=== PATIENT | male | born 1995 | race American Indian/Alaskan Native ===

== ENCOUNTER 2018-05-29 15:37 | Inpatient (IN) | payer BC ==
--- NOTE | 2018-05-29 16:07 | C.PDOC ---
History Of Present Illness 23 year old male presents to the ED requesting detoxification from heroin and cocaine. Patient was prescreened for detox. Last heroin use was 2 days ago. Last cocaine use was this morning. Complains of myalgias. Denies any other comp laints. Denies SI/HI. Time Seen by Provider: 05/29/18 16:06 Chief Complaint (Nursing): Substance Abuse History Per: Patient History/Exam Limitations: no limitations Onset/Duration Of Symptoms: Days Current Symptoms Are (Timing): Still Present Suicide/Self Injury Attempted (Context): None Modifying Factor(s): Narcotics (Heroin), Cocaine Associated Symptoms: denies: Suicidal Thoughts, Suicidal Plan Past Medical History Reviewed: Historical Data, Nursing Documentation, Vital Signs Vital Signs: Last Vital Signs Temp 98.3 F 05/29/18 15:45 Pulse 76 05/29/18 15:45 Resp 18 05/29/18 15:45 BP 153/90 H 05/29/18 15:45 Pulse Ox 100 05/29/18 15:45 - Medical History PMH: No Chronic Diseases Surgical History: No Surg Hx Family History: States: No Known Family Hx - Social History Hx Alcohol Use: No Hx Substance Use: Yes (heroin, cocaine ) - Immunization History Hx Tetanus Toxoid Vaccination: No Hx Influenza Vaccination: No Hx Pneumococcal Vaccination: No Review Of Systems Except As Marked, All Systems Reviewed And Found Negative. Constitutional: Positive for: Other (myalgias ). Negative for: Fever, Chills Psych: Negative for: Suicidal ideation Physical Exam - Physical Exam Appears: Non-toxic, No Acute Distress Skin: Warm, Dry, No Rash Head: Normacephalic Eye(s): bilateral: Normal Inspection Neck: Supple Chest: Symmetrical Cardiovascular: Rhythm Regular Respiratory: No Rales, No Rhonchi, No Wheezing, Other (CTA B/L ) Gastrointestinal/Abdominal: Soft, No Tenderness Extremity: Bilateral: Atraumatic, Normal Color And Temperature, Normal ROM Neurological/Psych: Oriented x3, Normal Speech Gait: Steady ED Course And Treatment - Laboratory Results Result Diagrams: 05/29/18 17:03 05/29/18 17:03 O2 Sat by Pulse Oximetry: 100 (RA) Pulse Ox Interpretation: Normal Reevaluation Time: 17:26 Reassessment Condition: Unchanged (MED CLEAR FOR DETOX, CRISIS NOTIFIED) Medical Decision Making Medical Decision Making: Plan - Bloodwork - Catapres 0.2mg PO - Motrin 600mg PO - Zofran 4mg PO - UA - Crisis Eval Disposition Counseled Patient/Family Regarding: Studies Performed, Diagnosis - Disposition Disposition: HOSPITALIZED Disposition Time: 18:35 Condition: STABLE Forms: [facility] ([place]) - POA Present On Arrival: None - Clinical Impression Clinical Impression: Drug abuse - Scribe Statement The provider has reviewed the documentation as recorded by the Scribberry Onofre All medical record entries made by the Theoibe were at my direction and personally dictated by me. I have reviewed the chart and agree that the record accurately reflects my personal performance of the history, physical exam, medical decision making, and the department course for this patient. I have also personally directed, reviewed, and agree with the discharge instructions and disposition.
[2018-05-29 16:54] LABS: BASO # 0.1 K/uL (0.0-0.2); BASO % 1.2 % (0.0-2.0); EOS % 0.8 % (0.0-4.0); HEMOGLOBIN 14.1 g/dL (12.0-18.0); LYMPH # 1.7 K/uL (1.0-4.3); LYMPH % 37.4 % (20.0-40.0); MEAN CELL VOLUME 87.3 fL (80.0-94.0); MEAN CORPUSCULAR HEMOGLOBIN 28.4 pg (27.0-31.0); MEAN CORPUSCULAR HGB CONC 32.5 g/dL (33.0-37.0); MEAN PLATELET VOLUME 7.7 fL (7.2-11.7); MONO # 0.3 K/uL (0.0-0.8); MONO % 6.2 % (0.0-10.0); NEUT # 2.5 K/uL (1.8-7.0); NEUT % 54.4 % (50.0-75.0); NRBC % 0.1 % (0.0-2.0); RBC 4.98 Mil/uL (4.40-5.90); RED CELL DISTRIBUTION WIDTH 15.1 % (11.5-14.5); WHITE BLOOD COUNT 4.5 K/uL (4.8-10.8)
[2018-05-29 16:54] LABS: SQUAMOUS EPITHIAL < 1 /hpf (0-5); URINE BILIRUBIN NEGATIVE (NEGATIVE); URINE BLOOD NEGATIVE (NEGATIVE); URINE CLARITY Clear (Clear); URINE COLOR Yellow (YELLOW); URINE GLUCOSE (UA) NORMAL (Normal); URINE LEUKOCYTE ESTERASE NEG Leu/uL (Negative); URINE PROTEIN NEGATIVE (NEGATIVE); URINE UROBILINOGEN NORMAL mg/dL (0.2-1.0)
[2018-05-29 17:17] LABS: BARBITURATES, UR NEGATIVE (NEGATIVE); BENZODIAZEPINES, UR NEGATIVE (NEGATIVE); PHENCYCLIDINE, UR NEGATIVE (NEGATIVE)
[2018-05-29 17:19] LABS: OPIATES, UR POSITIVE (NEGATIVE)
[2018-05-29 17:22] LABS: ALB/GLOB RATIO 1.5 (1.0-2.1); ALBUMIN 4.9 g/dL (3.5-5.0); ALT/SGPT 28 U/L (21-72); AST/SGOT 23 U/L (17-59); BLOOD UREA NITROGEN 11 mg/dL (9-20); CALCIUM 9.5 mg/dl (8.6-10.4); GFR NON-AFRICAN AMERICAN > 60
--- NOTE | 2018-05-29 19:18 | PCM.BM ---
<CalosMyrna - Last Filed: 05/29/18 19:16> Treatment Plan Problems - Problems identified on initial assessmt Denial Date Initiated: 05/29/18 Time Initiated: 19:17 Assessment reference: NA Status: Active Hopelessness Date Initiated: 05/29/18 Time Initiated: 19:17 Assessment reference: NA Status: Active Low Motivation to Change Date Initiated: 05/29/18 Time Initiated: 19:17 Assessment reference: NA Status: Active Chronic low self Esteem Date Initiated: 05/29/18 Time Initiated: 19:18 Assessment reference: NA Status: Active Treatment assets and liabiliti Patient Assests: ADL independent, physically healthy, negotiates basic needs, cognitively intact Patient Liabilities: substance abuse (heroin, cocaine) - Milieu Protocol Maintain good personal hygiene: daily Encourage regular showers, daily Remind patient to perform daily oral care, daily Assist patient to perform ADL's Conduct patient checks and document Observation sheet: Q15 minutes Maintain personal safety: every shift Educate patient to report safety concerns to staff, every shift Monitor environment for contraband/sharps Medication safety: Monitor for expected outcome, potential side effects: every shift, Assess barriers to learning: every shift, Assess readiness for medication education: every shift <Yenifer Chandra - Last Filed: 05/30/18 09:49> - Diagnosis (1) Opioid use disorder, severe, dependence Status: Acute Interventions: 05/30/18 09:49 * Assess 7x/week regarding severity of withdrawal * Educate regarding risks, benefits, side effects and alternatives of medications * Use Motivational Interviewing for abstinence * Use CBT for relapse prevention * Medication management for withdrawal symptoms * Encourage medication assisted treatment *
[2018-05-29] MEDS ORDERED: Aluminum Hydroxide/Magnesium Hydroxide Susp (30 mL) PO PRN (21:09)
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
--- NOTE | 2018-06-01 15:05 | PCM.PYCHPN ---
Psychiatric Progress Note - Psychiatric Progress Note Patient seen today, length of contact: 17 min Patient Chief Complaint: "I'm a better" Problems Identified/Issues Discussed: The pt is seen, chart reviewed, case discussed with staff. The pt is compliant with medications and reports no side-effects. Symptoms are improving but needs more time to stabilize. No impulsivity, no anger outburts, not overtly depressed with meds and treatment Pt attends groups and activities. Appropriate and pleasant. Support given, psycho-education provided. After care discussed. He is motivated for rehab Medication Change: Yes (detox changes daily) Medical Record Reviewed: Yes Mental Status Examination - Cognitive Function Orientation: Person, Place, Situation, Time Memory: Intact Attention: WNL Concentration: Poor Association: WNL Fund of Knowledge: WNL - Mood Mood: Depressed, Anxious - Affect Affect: Constricted - Speech Speech: Appropriate - Formal Thought Process Formal Thought Process: No Impairment - Suicidal Ideation Suicidal Ideation: No - Homicidal Ideation Homicidal Ideation: No Goal/Treatment Plan - Goal/Treatment Plan Need for Continued Stay: Discharge may exacerbated symptoms, Severe functional impairment Progress Toward Problem(s) and Goals/Treatment Plan: Taper with Methadone Gabapentin for augmentation Abilify and Lexapro for mood sxs and psychosis As needed medications Maalox, Clonidine, Atarax, Motrin, Imodium, Zofran, Trazodone All risks, benefits and alternatives of the meds discussed, and the pt agreed and understood. Attend groups and activities Supportive therapy and psychoeducation [place] for abstinence CBT for relapse prevention Encourage MAT Refer to rehab or IOP, and self-help groups Teach healthy lifestyle methods, i.e. diet, exercise, meditation Smoking cessation with [place] Nicotine patch if needed
--- NOTE | 2018-06-02 10:22 | PCM.PYCHPN ---
Psychiatric Progress Note - Psychiatric Progress Note Patient seen today, length of contact: 17 min Patient Chief Complaint: "I'm anxious" Problems Identified/Issues Discussed: The pt is seen, chart reviewed, case is discussed with staff. Support and psychoeducation given, CBT and [place] used briefly The pt is improving slowly but needs more time due to severity of symptoms and relapse risk. No SEs from medications, risks discussed. After care discussed Medication Change: Yes (detox changes daily) Medical Record Reviewed: Yes Mental Status Examination - Cognitive Function Orientation: Person, Place, Situation, Time Memory: Intact Attention: WNL Concentration: Poor Association: WNL Fund of Knowledge: WNL - Mood Mood: Depressed, Anxious - Affect Affect: Constricted - Speech Speech: Appropriate - Formal Thought Process Formal Thought Process: No Impairment - Suicidal Ideation Suicidal Ideation: No - Homicidal Ideation Homicidal Ideation: No Goal/Treatment Plan - Goal/Treatment Plan Need for Continued Stay: Discharge may exacerbated symptoms, Severe functional impairment Progress Toward Problem(s) and Goals/Treatment Plan: Taper with Methadone Gabapentin for augmentation Abilify and Lexapro for mood sxs and psychosis As needed medications Maalox, Clonidine, Atarax, Motrin, Imodium, Zofran, Trazodone All risks, benefits and alternatives of the meds discussed, and the pt agreed and understood. Attend groups and activities Supportive therapy and psychoeducation [place] for abstinence CBT for relapse prevention Encourage MAT Refer to rehab or IOP, and self-help groups Teach healthy lifestyle methods, i.e. diet, exercise, meditation Smoking cessation with [place] Nicotine patch if needed
--- NOTE | 2018-06-03 00:40 | PCM.PYCHPN ---
Psychiatric Progress Note - Psychiatric Progress Note Patient seen today, length of contact: 18 min Patient Chief Complaint: "I'm depressed" Problems Identified/Issues Discussed: The pt is seen again, chart reviewed, and case is discussed with the team. The pt denies any side-effects from meds. Attend activities and groups, brief individual therapy provided Not ready for discharge due to ongoing symptoms and high relapse risk. After care discussed again. Medication Change: Yes (detox changes daily) Medical Record Reviewed: Yes Mental Status Examination - Cognitive Function Orientation: Person, Place, Situation, Time Memory: Intact Attention: WNL Concentration: Poor Association: WNL Fund of Knowledge: WNL - Mood Mood: Depressed, Anxious - Affect Affect: Constricted - Speech Speech: Appropriate - Formal Thought Process Formal Thought Process: No Impairment - Suicidal Ideation Suicidal Ideation: No - Homicidal Ideation Homicidal Ideation: No Goal/Treatment Plan - Goal/Treatment Plan Need for Continued Stay: Discharge may exacerbated symptoms, Severe functional impairment Progress Toward Problem(s) and Goals/Treatment Plan: Taper with Methadone Gabapentin for augmentation Abilify and Lexapro for mood sxs and psychosis As needed medications Maalox, Clonidine, Atarax, Motrin, Imodium, Zofran, Trazodone All risks, benefits and alternatives of the meds discussed, and the pt agreed and understood. Attend groups and activities Supportive therapy and psychoeducation [place] for abstinence CBT for relapse prevention Encourage MAT Refer to rehab or IOP, and self-help groups Teach healthy lifestyle methods, i.e. diet, exercise, meditation Smoking cessation with [place] Nicotine patch if needed
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
[2018-06-03 09:32] VITALS: BP 133/77; PULSE 72; RESP 19; TEMP 98.8; O2SAT 99
== END 2018-06-03 09:36 | DRG 895 ==
LOC: C.ER 15:37 → C.7D 18:36 → C.9E 18:41 → C.7D 18:51
PROVIDERS: ADMIT Psychiatry & Neurology Psychiatry; ATTEND Psychiatry & Neurology Psychiatry
PROC: HZ2ZZZZ Detoxification Services for Substance Abuse Treatment (ICD-10-PCS; principal; 2018-05-29)
PROC: HZ46ZZZ Group Counseling for Substance Abuse Treatment, Psychoeducation (ICD-10-PCS; 2018-05-29)
PROC: GZ3ZZZZ Medication Management (ICD-10-PCS; 2018-05-29)
PROC: HZ59ZZZ Individual Psychotherapy for Substance Abuse Treatment, Supportive (ICD-10-PCS; 2018-05-29)
DX: F11.23 Opioid dependence with withdrawal (principal); F14.20 Cocaine dependence, uncomplicated; F33.3 Major depressive disorder, recurrent, severe with psychotic symptoms; F31.81 Bipolar II disorder; F16.10 Hallucinogen abuse, uncomplicated; F43.10 Post-traumatic stress disorder, unspecified; Z91.5 Personal history of self-harm

== ENCOUNTER 2018-08-18 08:21 | Inpatient (IN) | payer BC ==
[2018-08-18 09:16] LABS: BASO # 0.1 K/uL (0.0-0.2); BASO % 1.2 % (0.0-2.0); EOS # 0.1 K/uL (0.0-0.7); EOS % 1.3 % (0.0-4.0); HEMOGLOBIN 12.6 g/dL (12.0-18.0); LYMPH # 2.1 K/uL (1.0-4.3); LYMPH % 34.7 % (20.0-40.0); MEAN CELL VOLUME 86.1 fL (80.0-94.0); MEAN CORPUSCULAR HEMOGLOBIN 28.2 pg (27.0-31.0); MEAN CORPUSCULAR HGB CONC 32.8 g/dL (33.0-37.0); MEAN PLATELET VOLUME 7.3 fL (7.2-11.7); MONO # 0.4 K/uL (0.0-0.8); MONO % 5.8 % (0.0-10.0); NEUT # 3.4 K/uL (1.8-7.0); NRBC % 0.1 % (0.0-2.0); RBC 4.46 Mil/uL (4.40-5.90); RED CELL DISTRIBUTION WIDTH 13.6 % (11.5-14.5)
[2018-08-18 09:26] LABS: SQUAMOUS EPITHIAL < 1 /hpf (0-5); URINE BILIRUBIN NEGATIVE (NEGATIVE); URINE BLOOD NEGATIVE (NEGATIVE); URINE CLARITY Clear (Clear); URINE COLOR Yellow (YELLOW); URINE GLUCOSE (UA) NORMAL (Normal); URINE LEUKOCYTE ESTERASE NEG Leu/uL (Negative); URINE PROTEIN NEGATIVE (NEGATIVE); URINE UROBILINOGEN NORMAL mg/dL (0.2-1.0)
[2018-08-18 09:31] LABS: ALB/GLOB RATIO 1.5 (1.0-2.1); ALBUMIN 4.2 g/dL (3.5-5.0); ALT/SGPT 30 U/L (21-72); AST/SGOT 61 U/L (17-59); BLOOD UREA NITROGEN 11 mg/dL (9-20); CALCIUM 9.7 mg/dl (8.6-10.4); GFR NON-AFRICAN AMERICAN > 60
[2018-08-18 09:45] LABS: BARBITURATES, UR NEGATIVE (NEGATIVE); BENZODIAZEPINES, UR NEGATIVE (NEGATIVE); PHENCYCLIDINE, UR NEGATIVE (NEGATIVE)
[2018-08-18 10:18] LABS: OPIATES, UR POSITIVE (NEGATIVE)
--- NOTE | 2018-08-18 10:22 | C.PDOC ---
History Of Present Illness 23 year old male presents to ED with mother requesting detox from heroin and cocaine. Mother states that he was expressing suicidal ideation at home. Mother states that he came to [facility] several months ago for detox, felt better for a while, and then relapsed. Patient denies any physical complaints and suicidal ideation. Time Seen by Provider: 08/18/18 08:37 Chief Complaint (Nursing): Substance Abuse History Per: Patient, Family (mother) History/Exam Limitations: no limitations Onset/Duration Of Symptoms: Other (requesting detox) Suicide/Self Injury Attempted (Context): None Modifying Factor(s): Cocaine, Other (heroin) Associated Symptoms: denies: Suicidal Thoughts, Suicidal Plan Past Medical History Reviewed: Historical Data, Nursing Documentation, Vital Signs Vital Signs: Last Vital Signs Temp 98.1 F 08/18/18 08:31 Pulse 79 08/18/18 08:31 Resp 16 08/18/18 08:31 BP 132/78 08/18/18 08:31 Pulse Ox 99 08/18/18 08:31 - Medical History PMH: Bronchitis Denies: Diabetes (Patient denied.), Hepatitis (Patient denied.), HIV (Patient denied.), HTN (Patient denied.), Seizures (Patient denied.), Sexually Transmitted Disease (Patient denied.) Surgical History: No Surg Hx - [facility] Procedures DETOXIFICATION SERVICES FOR SUBSTANCE ABUSE TREATMENT (05/29/18) GROUP MANAGING COGNITIVE ENGINEER FOR SUBSTANCE ABUSE TREATMENT, PSYCHOEDUCATION (05/29/18) INDIV PSYCHOTHERAPY FOR SUBSTANCE ABUSE TREATMENT, SUPPORT (05/29/18) MEDICATION MANAGEMENT (05/29/18) Family History: States: Unknown Family Hx - Social History Hx Alcohol Use: No Hx Substance Use: Yes (LAST USE LAST NIGHT) - Immunization History Hx Tetanus Toxoid Vaccination: No Hx Influenza Vaccination: No Hx Pneumococcal Vaccination: No Review Of Systems Constitutional: Negative for: Fever, Chills, Weakness Respiratory: Negative for: Shortness of Breath Gastrointestinal: Negative for: Nausea, Vomiting, Abdominal Pain Neurological: Negative for: Weakness, Numbness, Dizziness Psych: Negative for: Suicidal ideation Physical Exam - Physical Exam Appears: Well, Non-toxic, No Acute Distress Skin: Normal Color, Warm, Dry Head: Atraumatic, Normacephalic Neck: Normal ROM, Supple Chest: Symmetrical, No Deformity Cardiovascular: Rhythm Regular, No Murmur Respiratory: No Rales, No Rhonchi, No Wheezing Gastrointestinal/Abdominal: Soft, No Tenderness Extremity: Capillary Refill (<2 seconds) Neurological/Psych: Oriented x3, Normal Speech, Normal Cognition ED Course And Treatment - Laboratory Results Result Diagrams: 08/18/18 09:09 08/18/18 09:09 Lab Results: Total Bilirubin 0.7 mg/dL (0.2-1.3) 08/18/18 09:09 AST 61 U/L (17-59) H D 08/18/18 09:09 ALT 30 U/L (21-72) 08/18/18 09:09 Alkaline Phosphatase 91 U/L (38-126) 08/18/18 09:09 Total Protein 7.0 g/dL (6.3-8.3) 08/18/18 09:09 Albumin 4.2 g/dL (3.5-5.0) 08/18/18 09:09 Globulin 2.8 gm/dL (2.2-3.9) 08/18/18 09:09 Albumin/Globulin Ratio 1.5 (1.0-2.1) 08/18/18 09:09 Urine Color Yellow (YELLOW) 08/18/18 09:09 Urine Clarity Clear (Clear) 08/18/18 09:09 Urine pH 5.0 (5.0-8.0) 08/18/18 09:09 Ur Specific [place] 1.018 (1.003-1.030) 08/18/18 09:09 Urine Protein Negative mg/dL (NEGATIVE) 08/18/18 09:09 Urine Glucose (UA) Normal mg/dL (Normal) 08/18/18 09:09 Urine Ketones 1+ mg/dL (NEGATIVE) H 08/18/18 09:09 Urine Blood Negative (NEGATIVE) 08/18/18 09:09 Urine Nitrate Negative (NEGATIVE) 08/18/18 09:09 Urine Bilirubin Negative (NEGATIVE) 08/18/18 09:09 Urine Urobilinogen Normal mg/dL (0.2-1.0) 08/18/18 09:09 Ur Leukocyte Esterase Neg [place]/uL (Negative) 08/18/18 09:09 Urine WBC (Auto) 3 /hpf (0-5) 08/18/18 09:09 Urine RBC (Auto) < 1 /hpf (0-3) 08/18/18 09:09 Ur Squamous Epith Cells < 1 /hpf (0-5) 08/18/18 09:09 O2 Sat by Pulse Oximetry: 99 (in RA) Progress Note: Labs ordered with drug screen and UA. Crisis evaluation ordered. Ptient is medically cleared. Disposition - Disposition Disposition: HOSPITALIZED Disposition Time: 12:34 Condition: STABLE - Clinical Impression Clinical Impression: Opioid use disorder, severe, dependence, Cocaine abuse - PA / ASSOCIATE COUNSEL / Resident Statement MD/DO has reviewed & agrees with the documentation as recorded. (Irish Torrez) - Scribe Statement The provider has reviewed the documentation as recorded by the Scribe (Irish Torrez) All medical record entries made by the Scribe were at my direction and personally dictated by me. I have reviewed the chart and agree that the record accurately reflects my personal performance of the history, physical exam, medical decision making, and the department course for this patient. I have also personally directed, reviewed, and agree with the discharge instructions and disposition. Decision To Admit - Pt Status Changed To: Hospital Disposition Of: Inpatient - Admit Certification Admit to Inpatient:: After my assessment, the patient will require hospitalization for at least two midnights. This is because of the severity of symptoms shown, intensity of services needed, and/or the medical risk in this patient being treated as an outpatient. - InPatient: Physician Admission Certification: I certify that this patient requires 2 or more midnights of care for the following reason:: needs more than 2 days of hospitalization for detox - . Bed Request Type: Detox Admitting Physician: Yenfier Chandra Patient Diagnosis: Opioid use disorder, severe, dependence, Cocaine abuse
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
--- NOTE | 2018-08-18 15:15 | PCM.BM ---
<Sabrina Oakes - Last Filed: 08/18/18 14:42> Treatment Plan Problems - Problems identified on initial assessmt defensive coping Date Initiated: 08/18/18 Assessment reference: NA Status: Active Chronic low self esteem Date Initiated: 08/25/18 Assessment reference: NA Status: Active Treatment assets and liabiliti Patient Assests: ADL independent, physically healthy, negotiates basic needs, cognitively intact Patient Liabilities: substance abuse - Milieu Protocol Maintain good personal hygiene: daily Encourage regular showers, daily Remind patient to perform daily oral care, daily Assist patient to perform ADL's Conduct patient checks and document Observation sheet: Q15 minutes Maintain personal safety: every shift Educate patient to report safety concerns to staff, every shift Monitor environment for contraband/sharps Medication safety: Monitor for expected outcome, potential side effects: every shift, Assess barriers to learning: every shift, Assess readiness for medication education: every shift <Yenifer Chandra - Last Filed: 08/19/18 13:24> - Diagnosis (1) Opioid use disorder, severe, dependence Status: Acute Interventions: 08/19/18 13:23 * Assess 7x/week regarding severity of withdrawal * Educate regarding risks, benefits, side effects and alternatives of medications * Use Motivational Interviewing for abstinence * Use CBT for relapse prevention * Medication management for withdrawal symptoms * Encourage medication assisted treatment *
[2018-08-18] MEDS: Magnesium Hydroxide Susp 30 ml UD PO SCH (17:21)
[2018-08-19] MEDS: Magnesium Hydroxide Susp 30 ml UD PO SCH (09:16)
[2018-08-19] MEDS ORDERED: guaiFENesin 200 mg/10 ml Syrup UD PO PRN (10:27)
--- NOTE | 2018-08-19 13:00 | RAD ---
Date of service: 08/19/2018 HISTORY: Persistent cough COMPARISON: No prior. TECHNIQUE: Chest PA and lateral FINDINGS: LINES AND TUBES: None. LUNG AND PLEURA: The lungs are well inflated and clear. No pleural effusion or pneumothorax. HEART AND MEDIASTINUM: The heart is not enlarged. No aortic atherosclerotic calcifications present. The hilar and mediastinal contours are within normal limits. SKELETAL STRUCTURES: The bony structures are within normal limits for the patient's age. VISUALIZED UPPER ABDOMEN: Normal. OTHER FINDINGS: None. IMPRESSION: No active pulmonary disease.
--- NOTE | 2018-08-19 13:23 | PCM.PYCHPN ---
Psychiatric Progress Note - Psychiatric Progress Note Patient seen today, length of contact: 16 min Patient Chief Complaint: "I am not OK" Problems Identified/Issues Discussed: The pt is seen, chart reviewed, case is discussed with staff. The pt is compliant with medications and reports no side-effects. Symptoms are improving but needs more time to stabilize and to avoid relapse. Pt attends groups and activities. Support given, psycho-education provided. After care discussed. Medication Change: Yes (detox changes daily) Medical Record Reviewed: Yes Mental Status Examination - Cognitive Function Orientation: Person, Place, Situation, Time Memory: Intact Attention: WNL Concentration: Poor Association: WNL Fund of Knowledge: WNL - Mood Mood: Depressed, Anxious - Affect Affect: Constricted - Speech Speech: Appropriate - Formal Thought Process Formal Thought Process: No Impairment - Suicidal Ideation Suicidal Ideation: No - Homicidal Ideation Homicidal Ideation: No Goal/Treatment Plan - Goal/Treatment Plan Need for Continued Stay: Discharge may exacerbated symptoms, Severe functional impairment Progress Toward Problem(s) and Goals/Treatment Plan: Taper with methadone Gabapentin for augmentation Resume lexaro and abilify As needed medications All risks, benefits and alternatives of the meds discussed, and the pt agreed and understood. Attend groups and activities Supportive therapy and psychoeducation [place] for abstinence CBT for relapse prevention Encourage MAT Refer to rehab or IOP, and self-help groups Teach healthy lifestyle methods, i.e. diet, exercise, meditation Smoking cessation with [place] Nicotine patch if needed Estimated Date of D/C: 08/23/18
--- NOTE | 2018-08-20 11:20 | PCM.PYCHPN ---
Psychiatric Progress Note - Psychiatric Progress Note Patient seen today, length of contact: 15 min Patient Chief Complaint: I am withdrawing. Problems Identified/Issues Discussed: Patient seen and evaluated, chart reviewed and discussed with the nurse. Patient reports some improvement in the withdrawal symptoms but still reports anxiety, headaches, cramps, joint pains and sweating. He reports anxiety but denies any feelings of hopelessness or helplessness. He denies any denies any manic or psychotic symptom. He denies any suicidal ideation or homicidal ideation. He is taking medications but denies any effects. COWS is still high and patient is high risk for discharge. Symptoms are improving gradually but he needs to stay longer for further stabilization. Supportive therapy and psychoeducation were given Medication Change: Yes Medical Record Reviewed: Yes Mental Status Examination - Cognitive Function Orientation: Person, Place, Situation, Time Memory: Intact Attention: WNL Concentration: Poor Association: WNL Fund of Knowledge: Poor - Mood Mood: Depressed, Anxious - Affect Affect: Constricted - Speech Speech: Soft - Formal Thought Process Formal Thought Process: No Impairment - Suicidal Ideation Suicidal Ideation: No - Homicidal Ideation Homicidal Ideation: No Goal/Treatment Plan - Goal/Treatment Plan Need for Continued Stay: Remain at risks for inpatient hospitalization Progress Toward Problem(s) and Goals/Treatment Plan: Opioid withdrawal Opioid use d/o - severe Sedative, 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 Attend groups and activities Supportive therapy and psychoeducation [place] for abstinence CBT for relapse prevention Encourage MAT Refer to rehab or IOP, and self-help groups Teach healthy lifestyle methods, i.e. diet, exercise, meditation Smoking cessation with [place] Nicotine patch if needed
[2018-08-21 09:20] VITALS: RESP 18
--- NOTE | 2018-08-21 15:20 | PCM.PYCHPN ---
Psychiatric Progress Note - Psychiatric Progress Note Patient seen today, length of contact: 15 min Patient Chief Complaint: I am feeling little better than yesterday.' Problems Identified/Issues Discussed: Patient seen and evaluated, chart reviewed and discussed with the nurse. As per staff, he is taking medications but denies any effects. Patient reports some improvement in the withdrawal symptoms but still reports anxiety, headaches, cramps, joint pains and sweating. He reports anxiety but denies any feelings of hopelessness or helplessness. He denies any denies any manic or psychotic symptom. He denies any suicidal ideation or homicidal ideation. COWS is still high and patient is high risk for discharge. Symptoms are improving gradually but he needs to stay longer for further stabilization. Supportive therapy and psychoeducation were given Medication Change: Yes Medical Record Reviewed: Yes Mental Status Examination - Cognitive Function Orientation: Person, Place, Situation, Time Memory: Intact Attention: WNL Concentration: Poor Association: WNL Fund of Knowledge: Poor - Mood Mood: Depressed, Anxious - Affect Affect: Constricted - Speech Speech: Soft - Formal Thought Process Formal Thought Process: No Impairment - Suicidal Ideation Suicidal Ideation: No - Homicidal Ideation Homicidal Ideation: No Goal/Treatment Plan - Goal/Treatment Plan Need for Continued Stay: Remain at risks for inpatient hospitalization Progress Toward Problem(s) and Goals/Treatment Plan: Opioid withdrawal Opioid use d/o - severe Sedative, 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 Attend groups and activities Supportive therapy and psychoeducation [place] for abstinence CBT for relapse prevention Encourage MAT Refer to rehab or IOP, and self-help groups Teach healthy lifestyle methods, i.e. diet, exercise, meditation Smoking cessation with [place] Nicotine patch if needed Estimated Date of D/C: 08/23/18
[2018-08-21 20:41] VITALS: O2SAT 95
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
[2018-08-22 10:11] VITALS: BP 108/68; PULSE 61; TEMP 97.7
== END 2018-08-22 12:24 | disposition home or self-care (01) | DRG 897 ==
LOC: C.ER 08:21 → C.7D 12:33
PROVIDERS: ADMIT Psychiatry & Neurology Psychiatry; ATTEND Psychiatry & Neurology Psychiatry
PROC: GZHZZZZ Group Psychotherapy (ICD-10-PCS; principal; 2018-08-18)
PROC: GZ56ZZZ Individual Psychotherapy, Supportive (ICD-10-PCS; 2018-08-18)
DX: F11.23 Opioid dependence with withdrawal (principal); F14.10 Cocaine abuse, uncomplicated; F41.1 Generalized anxiety disorder; F43.10 Post-traumatic stress disorder, unspecified; F31.9 Bipolar disorder, unspecified